=== PATIENT | male | born 1965 | race Two or more races ===

== ENCOUNTER 2024-06-30 08:00 | Outpatient (RCR) | payer MEDICAID, SELFPAY ==
--- NOTE | 2024-06-29 16:47 | CTCFLWUP_ITS ---
Patient: ROEL FAUSTIN : 1965 Page 2 of 2 FOLLOW UP NOTE DATE OF SERVICE: 06/29/2024 NAME: ROEL FAUSTIN ACCOUNT: [id number] : 1965 AGE: 59 INTERVAL HISTORY: Patient received his last durvalumab with Dr. Murphy. He says that he developed pneumonitis and sinc e then has been following with the [place]. Patient wanted to transfer his care back in [place] ONCOLOGY HISTORY: DIAGNOSIS: Malignant neoplasm of lower lobe, right bronchus or lung [ICD10] C34.31 DATE OF DIAGNOSIS: 05/29/2023 STAGE/TNM: Stage III lung cancer adenocarcinoma with no targetable mutations TREATMENT HISTORY: Care?Plan Start?Date Cycle Day Intent Taxol?Carbo?wkly?with?xrt 10/06/2023 1 7 Curative?(primary) DURValomab?10mg/kg 12/02/2023 1 14 Curative?(adjuvant) HISTORY OF PRESENT ILLNESS: Roel Faustin is a 59-year-old YULISSA speaking Other male with [id number] smoking history, smoking 3 cigarettes/day currently has the following oncology history. 05/29/2023: PET/CT scan was done as a follow-up study for history of pulmonary mass. 07/02/2023: CT-guided biopsy of the right lower lobe pulmonary mass 07/25/2023: CT scan of the chest with IV contrast 09/15/2023: Mr. Faustin has seen cardiothoracic surgeon Dr. Santi Lambert of [place]. 10/06/2023: The patient is started on chemoradiation. He received first weekly dose of Taxol and carb oplatin without any complications. 10/14/2023: The patient developed shortness of breath about 10 minutes after Taxol infusion. Taxol wa s discontinued. He was put on oxygen and eventually recovered and went home. He did not receive car boplatin that day. 10/20/2023 - 11/18/2023: Patient received carboplatin weekly as a radiosensitizing agent. Last dose of r adiation was given on 11/17/2023. 12/02/2023: Mr. Faustin received first dose of adjuvant durvalumab. 12/04/2023: PET/CT scan 12/26/2023: MRI of the abdomen with and without contrast PAST MEDICAL HISTORY: Non-small cell lung cancer RLL - dx 07/02/23 HTN Hyperlipidemia OTHER MEDICAL HISTORY/CONDITIONS: Non-small cell lung cancer RLL - dx 07/02/23 HTN Hyperlipidemia Right inguinal hernia repair - > 10yrs ago Right hand surgery - as child FAMILY HISTORY: Father:?Prostate?-?dx?age?80 SOCIAL HISTORY: Occupational?History:??[employer] Education?Level:?College Graduate, 4 year degree Marital?Status:? Tobacco?Pack?per?Day:?3 Tobacco?Use?Years:?30 Tobacco Use:?Smoked 3 ppd x 30yrs - now smoking 3 cigarettes/day ETOH?Use:?Socially Drug?Note:?Denies Social History Note:?Lives with and dtr MEDICATIONS: 1. rosuvastatin - 10 mg 1 tab Daily Medications Last Reconciled by Jeanette Butt MA on 06/29/2024 ALLERGIES: paclitaxel REVIEW OF SYSTEMS: A complete 14-point review of systems was performed and is negative except as noted in interval histo ry. PHYSICAL EXAMINATION: VITAL SIGNS: Temperature?97.8, B/P?122/86, Oxygen?Saturation?93% Weight?169.2?lbs PAIN: 0 - No pain ECOG Performance Status: 0 - Asymptomatic and fully active GENERAL APPEARANCE: Appears well, in no apparent distress, appropriately interactive. HEENT: Normocephalic, no temporal wasting, normal conjunctiva, no scleral icterus, normal hearing, li ps without lesions, neck normal range of motion. CARDIOVASCULAR: Not assessed. PULMONARY: Normal respiratory effort, no respiratory distress or use of accessory muscles, speaking i n full sentences, no tachypnea. EXTREMITIES: No pedal edema or cyanosis. SKIN: Normal skin appearance. NEUROLOGIC: Alert and oriented x4. PSHYCHIATRIC: Appropriate affect, mood normal, behavior normal, intact thought and speech. LABORATORY DATA: I have personally reviewed and interpreted each of the patient?s relevant lab tests, abnormal finding s are below: Date 03/08/24 ??GLUCOSE,RANDOM?(mg/dL) 116?H ??BLOOD?UREA?NITROGEN?(mg/dL) 24?H ??CREATININE?(mg/dL) 0.60 ??SODIUM?(mmol/L) 132?L ??POTASSIUM?(mmol/L) 4.0 ??CHLORIDE?(mmol/L) 101 ??CrCl?(CandG)?(ml/min) 127.85 ??AST/SGOT?(Unit/L) <?8 ??ALT/SGPT?(Unit/L) 31 ??ALKALINE?PHOSPHATASE?(Unit/L) 77 ??BILIRUBIN,?TOTAL?(mg/dL) 0.3 ??PROTEIN?TOTAL?(gm/dl) 5.4?L ??ALBUMIN,?SERUM?(gm/dl) 3.5 ??GLOBULIN?(gm/dl) 1.9?L ??ALBUMIN/GLOBULIN?RATIO 1.8 ??CALCIUM,?SERUM?(mg/dL) 8.8 ??CALCIUM?SERUM?(CORRECTED)?(mg/dL) 9.2 ASSESSMENT/PLAN: 1. Stage III A (T4, N0, M0) adenocarcinoma of the right lower lobe. Actionable mutations negative. High TMB score of 22.9 mutations per MB (07/02/2023) The cardiothoracic surgeon for Mr. Faustin is not a surgical candidate at this time. He has recomme nded chemoradiation and reconsider surgery depending on the response to chemoradiation. Patient completed chemo and radiation. PET CT scan in November 2023 showed poorly defined hypermetabolic lesion in the liver but MRI of the abdomen with and without contrast was negative for hepatic mets. Patient was followed by oncologist in [place]. Patient was on maintenance durvalumab. 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 Patient was put on prednisone taper and now is on prednisone 10 mg. Patient has not seen special forces engineer sergeant. [id number] smoking history. Currently smoking 3 cigarettes a day Need restaging scans. Patient states he just completed PET CT scan. I advised bilingual medical assistant Petey willson to get PET CT scan results for the patient and reschedule him with the appointment so as to review the results. As patient have stage III lung cancer also need brain MRI. Will also get endocrine la bs and refer to special forces engineer sergeant MRI brain TSH T4 T3 cortisol CBC CMP RETURN TO CLINIC: 3 to 4 weeks with the results Make sure patient's MRI brain and PET CT scan is there at the time of next visit BILLING AND COMPLIANCE: I reviewed external records from providers outside my specialty as summarized above. I spent a total of 50 minutes on this patient?s care on the day of their visit excluding time spent related to any bi lled procedures. This time includes time spent with the patient as well as time spent documenting in the medical record, reviewing patients records and tests, obtaining history, placing orders, communi cating with other healthcare professionals, counseling the patient, family or caregiver, and/or care coordination for the diagnoses above. Electronically Signed by: Amilcar Murrieta MD T: 4:44 PM CC: Khris?Angela? PCP: Amilcar Murrieta Referring: Amilcar Murrieta This document was completed utilizing speech recognition software. Grammatical errors, random word in sertions, pronoun errors, and incomplete sentences are an occasional consequence of this system due t o software limitations, ambient noise, and hardware issues. Any formal questions or concerns about th e content, text or information contained within the body of this dictation should be directly address ed to the provider for clarification.
[2024-06-30 13:11] LABS: Alanine Aminotransferase 13 U/L (10-49); Albumin, Serum 4.5 gm/dL (3.4-4.8); Albumin/Globulin Ratio 2.5 (1.2-2.2); Alkaline Phosphatase 78 U/L (46-116); Anion Gap 10 (7-16); Aspartate Amino Transferase 12 U/L (0-34); BUN/Creatinine Ratio 16 Ratio (12-20); Bilirubin,Total 0.5 mg/dL (0.3-1.2); Blood Urea Nitrogen 14 mg/dL (9-23); Calcium 9.4 mg/dL (8.3-10.6); Calcium (Corrected) 9.4 mg/dL (8.5-10.1); Carbon Dioxide 27.8 mMol/L (20.0-31.0); Chloride 104 mMol/L (98-107); Creatinine (Component) 0.9 mg/dL (0.6-1.3); Free T4 (Free Thyroxine) 1.45 ng/dL (0.89-1.76); Globulin 1.8 gm/dL (2.3-3.5); Glucose 73 mg/dL (74-106); Osmolality,Calculated 282 (275-295); Potassium 3.4 mMol/L (3.4-5.1); Sodium 142 mMol/L (136-145); Thyroid Stimulating Hormone 2.13 uIU/mL (0.55-4.78); Total Protein 6.3 gm/dL (5.7-8.2); eGFR > 60 See Note
[2024-06-30 15:53] LABS: Basophils # (Auto) 0.1 Thou/mm3 (0.0-0.2); Basophils % (Auto) 1 % (0-2.5); Eosinophils # (Auto) 0.2 Thou/mm3 (0.0-0.5); Eosinophils % (Auto) 4 % (0-10); Hematocrit 43.6 % (41.0-53.0); Hemoglobin 14.3 g/dL (13.5-16.0); Immature Granulocytes % (Auto) 0 % (0-0); Immature Granulocytes Auto 0.01 Thou/mm3 (0.00-0.00); Lymphocytes # (Auto) 0.7 Thou/mm3 (1.0-4.8); Lymphocytes % (Auto) 14 % (10-50); Mean Corpuscular HGB Conc 32.8 g/dl (31.0-37.0); Mean Corpuscular Hemoglobin 28.1 pg (25.0-35.0); Mean Corpuscular Volume 86 fL (80-100); Monocytes # (Auto) 0.6 Thou/mm3 (0.0-0.8); Monocytes % (Auto) 12 % (0-12); Neutrophils # (Auto) 3.5 Thou/mm3 (1.8-7.7); Neutrophils % (Auto) 68 % (37-80); Nucleated Red Blood Cell % 0 /100 WBC (0); Platelet Count 227 Thou/mm3 (140-440); RDW Standard Deviation 43.6 fL (35.1-43.9); Red Blood Count 5.08 Miln/mm3 (4.50-5.90); White Blood Count 5.1 Thou/mm3 (3.8-10.6)
== END 2024-07-16 23:59 | disposition home or self-care (01) ==
LOC: SCTC 08:00
PROVIDERS: PCP Student in an Organized Health Care Education/Training Program; Referring Provider Internal Medicine Hematology & Oncology; Visit Provider Internal Medicine Hematology & Oncology
DX: C34.31 Malignant neoplasm of lower lobe, right bronchus or lung (principal); F17.210 Nicotine dependence, cigarettes, uncomplicated
CPT/HCPCS: 36591; 80053; 82530; 82533; 84439; 84443; 85025; 99212; A4216; J1642; G0463

== ENCOUNTER → 2024-07-28 | Outpatient (CLI) | payer MEDICAID, SELFPAY ==
--- NOTE | 2024-07-28 08:15 | XR_ITS ---
Examination: MRI brain with intravenous contrast TECHNIQUE: Sagittal axial coronal brain MRI images post intravenous administration 14 cc gadolinium INDICATIONS: Diagnosis malignant neoplasm lower lobe right bronchus or lung, staging Exam date and time: July 28, 2024 0907 hours FINDINGS: Ventricles are normal in size and configuration. No mass effect upon the ventricular system. No effacement cortical sulcal markings. No enlargement of the sella turcica No abnormal enhancing cerebellar or cerebral lesions The optic globes exhibit symmetry IMPRESSION: No abnormal enhancing cerebellar or cerebral lesions
== END | disposition home or self-care (01) ==
LOC: SMRI 08:12
PROVIDERS: PCP Family Medicine; Referring Provider Internal Medicine Hematology & Oncology; Visit Provider Internal Medicine Hematology & Oncology
DX: C34.31 Malignant neoplasm of lower lobe, right bronchus or lung (principal)
CPT/HCPCS: 70552; A9579

== ENCOUNTER 2024-08-13 09:49 | Outpatient (RCR) | payer MEDICAID, SELFPAY ==
[2024-08-06 09:33] LABS: Basophils # (Auto) 0.1 Thou/mm3 (0.0-0.2); Basophils % (Auto) 1 % (0-2.5); Eosinophils # (Auto) 0.2 Thou/mm3 (0.0-0.5); Eosinophils % (Auto) 3 % (0-10); Hematocrit 44.6 % (41.0-53.0); Hemoglobin 14.7 g/dL (13.5-16.0); Immature Granulocytes % (Auto) 1 % (0-0); Immature Granulocytes Auto 0.03 Thou/mm3 (0.00-0.00); Lymphocytes # (Auto) 0.7 Thou/mm3 (1.0-4.8); Lymphocytes % (Auto) 12 % (10-50); Mean Corpuscular Hemoglobin 27.6 pg (25.0-35.0); Mean Corpuscular Volume 84 fL (80-100); Monocytes # (Auto) 0.6 Thou/mm3 (0.0-0.8); Monocytes % (Auto) 10 % (0-12); Neutrophils # (Auto) 4.3 Thou/mm3 (1.8-7.7); Neutrophils % (Auto) 75 % (37-80); Nucleated Red Blood Cell % 0 /100 WBC (0); Platelet Count 247 Thou/mm3 (140-440); RDW Standard Deviation 41.2 fL (35.1-43.9); Red Blood Count 5.33 Miln/mm3 (4.50-5.90); White Blood Count 5.8 Thou/mm3 (3.8-10.6)
[2024-08-06 10:01] LABS: Free T3 3.1 pg/mL (2.3-4.2)
[2024-08-06 10:08] LABS: Alanine Aminotransferase 12 U/L (10-49); Albumin, Serum 4.2 gm/dL (3.4-4.8); Albumin/Globulin Ratio 2.2 (1.2-2.2); Alkaline Phosphatase 88 U/L (46-116); Anion Gap 8 (7-16); Aspartate Amino Transferase 14 U/L (0-34); BUN/Creatinine Ratio 10 Ratio (12-20); Bilirubin,Total 0.4 mg/dL (0.3-1.2); Blood Urea Nitrogen 8 mg/dL (9-23); Calcium 9.4 mg/dL (8.3-10.6); Calcium (Corrected) 9.4 mg/dL (8.5-10.1); Chloride 105 mMol/L (98-107); Creatinine (Component) 0.8 mg/dL (0.6-1.3); Globulin 1.9 gm/dL (2.3-3.5); Glucose 98 mg/dL (74-106); Osmolality,Calculated 279 (275-295); Potassium 3.8 mMol/L (3.4-5.1); Sodium 141 mMol/L (136-145); Total Protein 6.1 gm/dL (5.7-8.2); eGFR > 60 See Note
--- NOTE | 2024-08-16 00:34 | CTCFLWUP_ITS ---
Patient: ROEL FAUSTIN : 1965 Page 5 of 6 FOLLOW UP NOTE DATE OF SERVICE: 08/13/2024 NAME: ROEL FAUSTIN ACCOUNT: [id number] : 1965 AGE: 59 INTERVAL HISTORY: No new complaints ONCOLOGY HISTORY: DIAGNOSIS: Malignant neoplasm of lower lobe, right bronchus or lung [ICD10] C34.31 DATE OF DIAGNOSIS: 05/29/2023 STAGE/TNM: Stage III lung cancer adenocarcinoma with no targetable mutations TREATMENT HISTORY: Care?Plan Start?Date Cycle Day Intent Taxol?Carbo?wkly?with?xrt 10/06/2023 1 7 Curative?(primary) DURValomab?10mg/kg 12/02/2023 1 14 Curative?(adjuvant) HISTORY OF PRESENT ILLNESS: Roel Faustin is a 59-year-old YULISSA speaking Other male with [id number] smoking history, smoking 3 cigarettes/day currently has the following oncology history. 05/29/2023: PET/CT scan was done as a follow-up study for history of pulmonary mass. 07/02/2023: CT-guided biopsy of the right lower lobe pulmonary mass 07/25/2023: CT scan of the chest with IV contrast 09/15/2023: Mr. Faustin has seen cardiothoracic surgeon Dr. Santi Lambert of [place]. 10/06/2023: The patient is started on chemoradiation. He received first weekly dose of Taxol and carboplatin without any complications. 10/14/2023: The patient developed shortness of breath about 10 minutes after Taxol infusion. Taxol was discontinued. He was put on oxygen and eventually recovered and went home. He did not receive carboplatin that day. 10/20/2023 - 11/18/2023: Patient received carboplatin weekly as a radiosensitizing agent. Last dose of radiation was given on 11/17/2023. 12/02/2023: Mr. Faustin received first dose of adjuvant durvalumab. 12/04/2023: PET/CT scan 12/26/2023: MRI of the abdomen with and without contrast PET CT scan on 05/17/2024 MRI brain on 07/28/2024 shows no abnormal enhancing cerebellar or cerebellar lesions PAST MEDICAL HISTORY: Non-small cell lung cancer RLL - dx 07/02/23 HTN Hyperlipidemia OTHER MEDICAL HISTORY/CONDITIONS: Non-small cell lung cancer RLL - dx 07/02/23 HTN Hyperlipidemia Right inguinal hernia repair - > 10yrs ago Right hand surgery - as child FAMILY HISTORY: Father:?Prostate?-?dx?age?80 SOCIAL HISTORY: Occupational?History:??[employer] Education?Level:?College Graduate, 4 year degree Marital?Status:? Tobacco?Pack?per?Day:?3 Tobacco?Use?Years:?30 Tobacco Use:?Smoked 3 ppd x 30yrs - now smoking 3 cigarettes/day ETOH?Use:?Socially Drug?Note:?Denies Social History Note:?Lives with and dtr MEDICATIONS: 1. rosuvastatin - 10 mg 1 tab Daily Medications Last Reconciled by Gaby Hebert MD on 08/13/2024 ALLERGIES: paclitaxel REVIEW OF SYSTEMS: A complete 14-point review of systems was performed and is negative except as noted in interval history. PHYSICAL EXAMINATION: VITAL SIGNS: Temperature?97.9, B/P?107/76, Oxygen?Saturation?93% Weight?169?lbs (Change?since?08/06/24:?-1.8?lbs) PAIN: 0 - No pain GENERAL APPEARANCE: Appears well, in no apparent distress, appropriately interactive. HEENT: Normocephalic, no temporal wasting, normal conjunctiva, no scleral icterus, normal hearing, lips without lesions, neck normal range of motion. CARDIOVASCULAR: Not assessed. PULMONARY: Normal respiratory effort, no respiratory distress or use of accessory muscles, speaking in full sentences, no tachypnea. EXTREMITIES: No pedal edema or cyanosis. SKIN: Normal skin appearance. NEUROLOGIC: Alert and oriented x4. PSHYCHIATRIC: Appropriate affect, mood normal, behavior normal, intact thought and speech. LABORATORY DATA: I have personally reviewed and interpreted each of the patient?s relevant lab tests, abnormal findings are below: Date 08/06/24 ??WHITE?BLOOD?COUNT?(Thou/mm3) 5.8 ??RED?BLOOD?COUNT?(Miln/mm3) 5.33 ??HEMOGLOBIN?(gm/dl) 14.7 ??HEMATOCRIT?(%) 44.6 ??PLATELET?COUNT?(Thou/mm3) 247 ??NEUTROPHILS?%,?AUTO?(%) 75 ??LYMPH?%,?AUTO?(%) 12 ??NEUTROPHILS,?AUTO?(Thou/mm3) 4.3 ASSESSMENT/PLAN: 1. Stage III A (T4, N0, M0) adenocarcinoma of the right lower lobe. Actionable mutations negative. High TMB score of 22.9 mutations per MB (07/02/2023) The cardiothoracic surgeon for Mr. Faustin is not a surgical candidate at this time. He has recommended chemoradiation and reconsider surgery depending on the response to chemoradiation. Patient completed chemo and radiation. PET CT scan in November 2023 showed poorly defined hypermetabolic lesion in the liver but MRI of the abdomen with and without contrast was negative for hepatic mets. Patient was followed by oncologist in [place]. Patient was on maintenance durvalumab. Patient had his last dose on 01/27/2024 and 12 pneumonitis which was attributed to immunotherapy. Patient was put on prednisone taper and now is on prednisone 10 mg. Patient has not seen all purpose clerk. [id number]-hygu smoking history. Currently smoking 3 cigarettes a day MRI brain negative PET CT scan CT scan do not show any new lesions TSH T4 T3 cortisol CBC CMP TSH T4 T3 cortisol CBC CMP RETURN TO CLINIC: 6 months BILLING AND COMPLIANCE: I reviewed external records from providers outside my specialty as summarized above. I spent a total of 50 minutes on this patient?s care on the day of their visit excluding time spent related to any billed procedures. This time includes time spent with the patient as well as time spent documenting in the medical record, reviewing patients records and tests, obtaining history, placing orders, communicating with other healthcare professionals, counseling the patient, family or caregiver, and/or care coordination for the diagnoses above. Electronically Signed by: Amilcar Murrieta MD T: 12:32 AM CC: Hiral? PCP: Perez Griggs Referring: Perez Griggs This document was completed utilizing speech recognition software. Grammatical errors, random word insertions, pronoun errors, and incomplete sentences are an occasional consequence of this system due to software limitations, ambient noise, and hardware issues. Any formal questions or concerns about the content, text or information contained within the body of this dictation should be directly addressed to the provider for clarification.
== END 2024-08-13 23:59 | disposition home or self-care (01) ==
LOC: SCTC 09:49
PROVIDERS: PCP Family Medicine; Referring Provider Family Medicine; Visit Provider Internal Medicine Hematology & Oncology
DX: C34.31 Malignant neoplasm of lower lobe, right bronchus or lung (principal); Z92.3 Personal history of irradiation; Z92.21 Personal history of antineoplastic chemotherapy; F17.210 Nicotine dependence, cigarettes, uncomplicated
CPT/HCPCS: 36591; 80053; 82533; 84439; 84443; 84481; 85025; 99212; A4216; J1642; G0463

== ENCOUNTER → 2024-08-24 | Outpatient (CLI) | payer MEDICAID, SELFPAY ==
--- NOTE | 2024-08-24 13:30 | ECHO_ITS ---
Transthoracic Echo Report Ht (in): 67 Wt (lb): 150 Exam Location: Echo Lab Status: Preadmit Personal Banking Assistant: SYLVESTER Hernandez^^^^ Indications: Procedure Performed: BP: 128 / 74 HR: 78 Rhythm: Sinus Technical Quality: Very technically difficult study MEASUREMENTS (Male / Female) Normal Values 2D ECHO LV Diastolic Diameter PLAX 3.9 cm 4.2 - 5.9 / 3.9 - 5.3 cm LV Systolic Diameter PLAX 2.7 cm IVS Diastolic Thickness 1.0 cm 0.6 - 1.0 / 0.6 - 0.9 cm LVPW Diastolic Thickness 0.9 cm 0.6 - 1.0 / 0.6 - 0.9 cm LV Relative Wall Thickness 0.5 LVOT Diameter 2.0 cm Aortic Root Diameter 3.9 cm LA Systolic Diameter LX 2.4 cm 3.0 - 4.0 / 2.7 - 3.8 cm LV Ejection Fraction MOD BP 62.0 % >= 55 % LV Cardiac Index MOD BP 3252.3 cm?/min?m? LV Ejection Fraction MOD 4C 59.4 % LV Cardiac Index MOD 4C 3681.7 cm?/min?m? LV Ejection Fraction 4C AL 60.2 % LV Cardiac Index 4C AL 3822.6 cm?/min?m? LV Ejection Fraction MOD 2C 66.1 % LV Cardiac Index MOD 2C 2953.1 cm?/min?m? LV Ejection Fraction 2C AL 66.5 % LV Cardiac Index 2C AL 2889.4 cm?/min?m? LA Volume Index 20.8 cm?/m? 16 - 28 cm?/m? DOPPLER AV Peak Velocity 127.0 cm/s AV Peak Gradient 6.5 mmHg AV Mean Gradient 4.0 mmHg AV Velocity Time Integral 23.2 cm AI Peak Velocity 267.0 cm/s AI Peak Gradient 28.5 mmHg AI Pressure Half Time 653.0 ms LVOT Peak Velocity 91.6 cm/s LVOT Peak Gradient 3.4 mmHg LVOT Velocity Time Integral 17.1 cm LVOT Cardiac Index 2329.6 cm?/min?m? AV Area Cont Eq vti 2.3 cm? AV Area Cont Eq pk 2.3 cm? MV Area PHT 3.2 cm? Mitral E Point Velocity 46.3 cm/s Mitral A Point Velocity 96.7 cm/s Mitral E to A Ratio 0.5 LV E' Lateral Velocity 9.3 cm/s Mitral E to LV E' Lateral Ratio 5.0 LV E' Septal Velocity 8.6 cm/s Mitral E to LV E' Septal Ratio 5.4 TR Peak Velocity 173.0 cm/s TR Peak Gradient 12.0 mmHg PV Peak Velocity 60.3 cm/s PV Peak Gradient 1.5 mmHg RVOT Peak Velocity 47.3 cm/s FINDINGS Left Ventricle Normal left ventricular size, wall thickness, systolic function with no obvious regional wall motion abnormalities. There is grade I diastolic dysfunction of the left ventricle (impaired relaxation pattern). The left ventricular ejection fraction is normal, estimated at 60-65%. Right Ventricle The right ventricle is normal in size and systolic function. The estimated right ventricular systolic pressure, 12 mmHg. Left Atrium The left atrium is normal by two-dimensional, color flow and Doppler imaging with no structural abnormalities, no thrombus formation present. Right Atrium The right atrium is normal by two-dimensional imaging, color flow and Doppler imaging with no structural abnormalities, no thrombus formation present. Atrial Septum The interatrial septum appears normal with no evidence of a shunt. Aorta The aortic root and proximal ascending aorta dimensions are at the upper limits of normal. Mitral Valve Trace to mild mitral regurgitation. Mild mitral annular calcification. Aortic Valve Mild aortic valve regurgitation. Tricuspid Valve There is trace tricuspid valve regurgitation. Pulmonic Valve The pulmonic valve is not well visualized. There is no significant pulmonic valve regurgitation. Vessels The pulmonary artery appears normal. The inferior vena cava pulmonary and hepatic veins appear normal. Pericardium The pericardium is normal by two-dimensional imaging. There is no significant pericardial effusion. CONCLUSIONS Indication: History of malignancy Normal LV size and function with an EF of 60 to 65%. Normal diastolic function. Normal RV size and function. Normal RVSP Mild AI, trace MR as well as trace TR. No pericardial effusion Ignacio Plattumanreyes (Electronically Signed) Final Date: 25 August 2024 00:37
== END | disposition home or self-care (01) ==
LOC: SDIM 08-26 08:46
PROVIDERS: Referring Provider Internal Medicine Hematology & Oncology; Visit Provider Internal Medicine Hematology & Oncology
DX: I08.3 Combined rheumatic disorders of mitral, aortic and tricuspid valves (principal); C34.31 Malignant neoplasm of lower lobe, right bronchus or lung
CPT/HCPCS: 93306

== ENCOUNTER → 2024-10-12 | Outpatient (CLI) | payer MEDICAID, SELFPAY ==
--- NOTE | 2024-10-12 14:00 | XR_ITS ---
Examination: CT chest with intravenous contrast CT chest without intravenous contrast CT chest without intravenous contrast 2-D reconstructions Date and time of exam:October 12, 2024 1445 hours INDICATIONS: Lung carcinoma diagnosis one year ago, coughing one month CTDI:vol (mGy) 9.42 DLP: (mGycm) 753 Technique: Multiple axial sections of the thorax have been obtained. 3 mm slice thickness, from the hemidiaphragms to above the apices of the lungs. Mediastinal and lung density settings have been obtained. Intravenous contrast administered 60 cc [id number]-370. Noncontrast images have also been obtained. 2-D sagittal coronal images obtained. Low dose protocols were performed. One or more of the following dose reduction techniques were used; automated exposure control, adjustment of the mA and/or KV according to patient size, use of iterative reconstruction technique. Findings: No thoracic aortic aneurysm dilatation or dissection Pulmonary artery segments are not enlarged No pulmonary artery emboli Masslike area in the inferior right hilar region 5.4 cm in transverse dimension Pneumonic consolidation with air bronchograms in the right lower lobe No visualized liver or splenic lesion No gallstones No pancreatic mass Prominent osteopenia IMPRESSION: Masslike area in the inferior right hilar region 5.4 cm in transverse dimension probably present on the prior CT chest 02/17/2024 but obscured by the significant right lung pneumonia Chronic parenchymal disease versus pneumonia in the right lower lobe Suggest continued 6 month follow-up CT chest post intravenous contrast recommended
== END | disposition home or self-care (01) ==
PROVIDERS: Referring Provider Internal Medicine Hematology & Oncology; Visit Provider Internal Medicine Hematology & Oncology
DX: R91.8 Other nonspecific abnormal finding of lung field (principal); C34.31 Malignant neoplasm of lower lobe, right bronchus or lung
CPT/HCPCS: 71270; A4649; Q9967

== ENCOUNTER 2024-11-10 11:23 | Outpatient (RCR) | payer MEDICAID, SELFPAY ==
--- NOTE | 2024-11-10 15:04 | CTCFLWUP_ITS ---
Patient: ROEL FAUSTIN : 1965 Page 2 of 2 FOLLOW UP NOTE DATE OF SERVICE: 11/10/2024 NAME: ROEL FAUSTIN ACCOUNT: [id number] : 1965 AGE: 59 INTERVAL HISTORY: Patient is being planned for surgery. He does not know his exact appointment but all the workup has been completed Subjective: History of Present Illness Roel is a male patient with a history of lung issues and possible cancer, presenting for follow-up on recent imaging studies and to discuss potential surgery. The patient recently underwent a CT scan on October 12, which showed results similar to previous scans. There is significant scarring in the lungs, which may be attributed to prior radiation treatment. Roel is currently awaiting an appointment for surgery, though the specific nature and timing of the procedure are not detailed. He has completed all necessary pre-surgical tests, including lung function tests. The patient's care team is considering ordering a blood test called [facility] to detect the presence of cancer. Review of Systems Respiratory: Positive for severe lung condition. Objective: Laboratory, Imaging, and Diagnostic Test Results - CT scan (10/12/2024): Results appear unchanged from previous scan. Significant scarring noted. - Heart imaging (specific test not specified): Normal findings. ONCOLOGY HISTORY: DIAGNOSIS: Malignant neoplasm of lower lobe, right bronchus or lung [ICD10] C34.31 DATE OF DIAGNOSIS: 05/29/2023 STAGE/TNM: Stage III lung cancer adenocarcinoma with no targetable mutations TREATMENT HISTORY: Care?Plan Start?Date Cycle Day Intent Taxol?Carbo?wkly?with?xrt 10/06/2023 1 7 Curative?(primary) DURValomab?10mg/kg 12/02/2023 1 14 Curative?(adjuvant) HISTORY OF PRESENT ILLNESS: Roel Faustin is a 59-year-old YULISSA speaking Other male with 31-[id number]-glhh smoking history, smoking 3 cigarettes/day currently has the following oncology history. 05/29/2023: PET/CT scan was done as a follow-up study for history of pulmonary mass. 07/02/2023: CT-guided biopsy of the right lower lobe pulmonary mass 07/25/2023: CT scan of the chest with IV contrast 09/15/2023: Mr. Faustin has seen cardiothoracic surgeon Dr. Santi Lambert of [place]. 10/06/2023: The patient is started on chemoradiation. He received first weekly dose of Taxol and carboplatin without any complications. 10/14/2023: The patient developed shortness of breath about 10 minutes after Taxol infusion. Taxol was discontinued. He was put on oxygen and eventually recovered and went home. He did not receive carboplatin that day. 10/20/2023 - 11/18/2023: Patient received carboplatin weekly as a radiosensitizing agent. Last dose of radiation was given on 11/17/2023. 12/02/2023: Mr. Faustin received first dose of adjuvant durvalumab. 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 Tobacco?Pack?per?Day:?3 Tobacco?Use?Years:?30 Tobacco Use:?Smoked 3 ppd x 30yrs - now smoking 3 cigarettes/day ETOH?Use:?Socially Drug?Note:?Denies Social History Note:?Lives with and dtr MEDICATIONS: 1. prednisone - 10 mg 0.5 tab Daily 2. rosuvastatin - 10 mg 1 tab Daily Medications Last Reconciled by Gaby Yusuf MA on 11/10/2024 ALLERGIES: paclitaxel REVIEW OF SYSTEMS: A complete 14-point review of systems was performed and is negative except as noted in interval history. PHYSICAL EXAMINATION: VITAL SIGNS: Temperature?98.7, B/P?112/78, Oxygen?Saturation?98% PAIN: 0 - No pain ECOG Performance Status: 1 - Symptomatic; ambulatory; restricted in strenuous activity GENERAL APPEARANCE: Appears well, in no apparent distress, appropriately interactive. HEENT: Normocephalic, no temporal wasting, normal conjunctiva, no scleral icterus, normal hearing, lips without lesions, neck normal range of motion. CARDIOVASCULAR: Not assessed. PULMONARY: Normal respiratory effort, no respiratory distress or use of accessory muscles, speaking in full sentences, no tachypnea. EXTREMITIES: No pedal edema or cyanosis. SKIN: Normal skin appearance. NEUROLOGIC: Alert and oriented x4. PSHYCHIATRIC: Appropriate affect, mood normal, behavior normal, intact thought and speech. LABORATORY DATA: I have personally reviewed and interpreted each of the patient?s relevant lab tests, abnormal findings are below: Date 06/30/24 08/06/24 ??WHITE?BLOOD?COUNT?(Thou/mm3) 5.1 5.8 ??RED?BLOOD?COUNT?(Miln/mm3) 5.08 5.33 ??HEMOGLOBIN?(gm/dl) 14.3 14.7 ??HEMATOCRIT?(%) 43.6 44.6 ??PLATELET?COUNT?(Thou/mm3) 227 247 ??NEUTROPHILS?%,?AUTO?(%) 68 75 ??LYMPH?%,?AUTO?(%) 14 12 ??NEUTROPHILS,?AUTO?(Thou/mm3) 3.5 4.3 ??GLUCOSE,RANDOM?(mg/dL) 73?L 98 ??BLOOD?UREA?NITROGEN?(mg/dL) 14 8?L ??CREATININE?(mg/dL) 0.90 0.80 ??SODIUM?(mmol/L) 142 141 ??POTASSIUM?(mmol/L) 3.4 3.8 ??CHLORIDE?(mmol/L) 104 105 ??CrCl?(CandG)?(ml/min) 95.98 107.60 ??AST/SGOT?(Unit/L) 12 14 ??ALT/SGPT?(Unit/L) 13 12 ??ALKALINE?PHOSPHATASE?(Unit/L) 78 88 ??BILIRUBIN,?TOTAL?(mg/dL) 0.5 0.4 ??PROTEIN?TOTAL?(gm/dl) 6.3 6.1 ??ALBUMIN,?SERUM?(gm/dl) 4.5 4.2 ??GLOBULIN?(gm/dl) 1.8?L 1.9?L ??ALBUMIN/GLOBULIN?RATIO 2.5?H 2.2 ??CALCIUM,?SERUM?(mg/dL) 9.4 9.4 ??CALCIUM?SERUM?(CORRECTED)?(mg/dL) 9.4 9.4 ASSESSMENT/PLAN: Roel, a male patient with severe lung issues, presented for follow-up of CT scan results and discussion of pending lung surgery 1. Stage III A (T4, N0, M0) adenocarcinoma of the right lower lobe. Actionable mutations negative. High TMB score of 22.9 mutations per MB (07/02/2023) The cardiothoracic surgeon for Mr. Faustin is not a surgical candidate at this time. He has recommended chemoradiation and reconsider surgery depending on the response to chemoradiation. Patient completed chemo and radiation. PET CT scan in November 2023 showed poorly defined hypermetabolic lesion in the liver but MRI of the abdomen with and without contrast was negative for hepatic mets. Patient was followed by oncologist in [place]. Patient was on maintenance durvalumab. Patient had his last dose on 01/27/2024 and 12 pneumonitis which was attributed to immunotherapy. Patient was put on prednisone taper and now is on prednisone 10 mg. Patient has not seen chocolatier. Advised to take half tablet every other day. Patient is on 2.5 mg of prednisone. Patient advised to stop it after this prescription is complete. [id number] smoking history. Last cigarette smoking was about a year ago. Severe lung disease Assessment: Patient has severe lung disease, likely with permanent damage possibly due to radiation therapy. Recent CT scan from October 12 shows unchanged findings compared to previous imaging, with significant scarring noted. Lung function appears to be significantly impaired, warranting surgical intervention. Awaiting appointment with surgeon for further management. Plan: - Perform Natira blood test to assess for presence of cancer - Contact radiologist to request re-read of recent CT scan - Recommend daily breathing exercises: - Instruct patient on proper technique (inhale through nose, hold, exhale through mouth) - Encourage frequent practice to increase lung capacity - Consider use of incentive spirometer (breast pump mentioned as substitute) - Await surgical appointment and intervention MRI brain negative PET CT scan CT scan do not show any new lesions TSH T4 T3 cortisol CBC CMP TSH T4 T3 cortisol CBC CMP ORDERS: Order # Description [id number] Comprehensive Metabolic Panel - 12 + CBC with Auto Diff [id number] Follow Up 2 Months [id number] RETURN TO CLINIC: 2 months BILLING AND COMPLIANCE: I reviewed external records from providers outside my specialty as summarized above. I spent a total of 50 minutes on this patient?s care on the day of their visit excluding time spent related to any billed procedures. This time includes time spent with the patient as well as time spent documenting in the medical record, reviewing patients records and tests, obtaining history, placing orders, communicating with other healthcare professionals, counseling the patient, family or caregiver, and/or care coordination for the diagnoses above. Electronically Signed by: Amilcar Murrieta MD T: 3:02 PM CC: Khris?BA Miller PCP: Perez Griggs Referring: Perez Griggs This document was completed utilizing speech recognition software. Grammatical errors, random word insertions, pronoun errors, and incomplete sentences are an occasional consequence of this system due to software limitations, ambient noise, and hardware issues. Any formal questions or concerns about the content, text or information contained within the body of this dictation should be directly addressed to the provider for clarification.
== END 2024-11-13 23:59 | disposition home or self-care (01) ==
LOC: SCTC 11:23
PROVIDERS: PCP Family Medicine; Referring Provider Family Medicine; Visit Provider Internal Medicine Hematology & Oncology
DX: C34.31 Malignant neoplasm of lower lobe, right bronchus or lung (principal); Z87.891 Personal history of nicotine dependence
CPT/HCPCS: 99212; G0463

== ENCOUNTER → 2024-12-07 | Outpatient (CLI) | payer MEDICAID, SELFPAY ==
--- NOTE | 2024-12-07 16:30 | ECHO_ITS ---
Transthoracic Echo Report Ht (in): 66 Wt (lb): 205 Exam Location: Echo Lab Status: Outpatient [employer] Application Developer: Ann Conrad Indications: Procedure Performed: BP: / HR: Technical Quality: Very technically difficult study MEASUREMENTS (Male / Female) Normal Values M-MODE Aortic Root Diameter MM 3.3 cm LA Systolic Diameter MM 3.1 cm LA Ao Ratio MM 0.9 AV Cusp Separation MM 1.7 cm DOPPLER AV Peak Velocity 87.3 cm/s AV Peak Gradient 3.0 mmHg AV Mean Gradient 1.5 mmHg AV Velocity Time Integral 15.4 cm LVOT Peak Velocity 62.1 cm/s LVOT Peak Gradient 1.5 mmHg LVOT Velocity Time Integral 13.2 cm MV Area PHT 3.7 cm? Mitral E Point Velocity 50.4 cm/s Mitral A Point Velocity 75.2 cm/s Mitral E to A Ratio 0.7 LV E' Lateral Velocity 10.6 cm/s Mitral E to LV E' Lateral Ratio 4.8 LV E' Septal Velocity 6.1 cm/s Mitral E to LV E' Septal Ratio 8.3 PV Peak Velocity 66.5 cm/s PV Peak Gradient 1.8 mmHg FINDINGS Left Ventricle Normal left ventricular size, wall thickness, systolic function with no obvious regional wall motion abnormalities.there is grade I diastolic dysfunction of the left ventricle (impaired relaxation pattern). The ejection fraction is visually estimated at 55%. Right Ventricle The right ventricle was not well visualized; however, the systolic function is considered normal based on the TAPSE criteria. Left Atrium The left atrium is normal by two-dimensional, color flow and Doppler imaging with no structural abnormalities, no thrombus formation present. Right Atrium The right atrium is normal by two-dimensional imaging, color flow and Doppler imaging with no structural abnormalities, no thrombus formation present. Atrial Septum The interatrial septum appears normal with no evidence of a shunt. Aorta The aorta is normal by two-dimensional, color flow and Doppler interrogation. Mitral Valve The mitral valve is not well visualized. Aortic Valve The aortic valve is not well visualized. Tricuspid Valve The tricuspid valve is not well visualized. Pulmonic Valve The pulmonic valve is not well visualized. There is no significant pulmonic valve regurgitation. Vessels Normal inferior vena cava (IVC). Pericardium The pericardium is normal by two-dimensional imaging. There is no significant pericardial effusion. CONCLUSIONS Indication: Malignant neoplasm of lower lobe, right bronchus or lung. Suboptimal images due to surgery. Technically limited study. Overall poor images. Normal LV size and function. Estimated EF at 55-60%. Grade I diastolic dysfunction. The RV was not well visualized; however, the systolic function is considered normal based on the TAPSE criteria. Unable to comment on valvular pathology. Ignacio Headley (Electronically Signed) Final Date: 09 December 2024 18:15
== END | disposition home or self-care (01) ==
LOC: SDIM 16:27
PROVIDERS: PCP Family Medicine; Referring Provider Internal Medicine Hematology & Oncology; Visit Provider Internal Medicine Hematology & Oncology
DX: C34.31 Malignant neoplasm of lower lobe, right bronchus or lung (principal); I51.89 Other ill-defined heart diseases
CPT/HCPCS: 93306

== ENCOUNTER 2024-12-15 07:57 | Outpatient (RCR) | payer MEDICAID, SELFPAY | END 2025-01-13 23:59 | disposition home or self-care (01) | LOC: SCTC 07:57 | PROVIDERS: PCP Family Medicine; Referring Provider Family Medicine; Visit Provider Internal Medicine Hematology & Oncology | DX: C34.31 Malignant neoplasm of lower lobe, right bronchus or lung (principal) | CPT/HCPCS: 36591; A4216; J1642 ==

== ENCOUNTER → 2025-01-18 | Outpatient (CLI) | payer MEDICAID, SELFPAY ==
--- NOTE | 2025-01-18 14:00 | XR_ITS ---
Examination: CT chest with intravenous contrast CT chest without intravenous contrast 2-D reconstructions Date and time of exam:January 18, 2025 1423 hours Comparison October 12, 2024 INDICATIONS: Diagnosis malignant neoplasm lower lobe right bronchus, restaging, 5.4 cm mass inferior right hilar region on CT chest October 12, 2024 CTDI:vol (mGy) 21.4 DLP: (mGycm) 756 Technique: Multiple axial sections of the thorax have been obtained. 3 mm slice thickness, from the hemidiaphragms to above the apices of the lungs. Mediastinal and lung density settings have been obtained. Intravenous contrast administered 60 cc Isovue-370. Noncontrast images have also been obtained. 2-D sagittal coronal images obtained. Low dose protocols were performed. One or more of the following dose reduction techniques were used; automated exposure control, adjustment of the mA and/or KV according to patient size, use of iterative reconstruction technique. Findings: No atherosclerotic aneurysmal dilatation No pulmonary artery filling defects Masslike area in the right lower lobe which appears necrotic now measures 5.0 cm compared to 5.4 cm on the prior study There is a loculated appearing pleural fluid below the pulmonary mass which may represent empyema Left lung is clear The osseous structures are intact No focal liver or splenic lesions No gallstones No pancreatic mass IMPRESSION: Mass in the right lower lobe now measures 5.0 cm in transverse dimension compared to 5.4 cm on the prior study However, there is a loculated pleural fluid below the pulmonary mass which may represent empyema, clinical correlation advised This fluid collection is amenable to CT-guided catheter drainage as clinically warranted
== END | disposition home or self-care (01) ==
LOC: CCTX 13:46
PROVIDERS: Referring Provider Internal Medicine Hematology & Oncology; Visit Provider Internal Medicine Hematology & Oncology
DX: R91.8 Other nonspecific abnormal finding of lung field (principal); C34.31 Malignant neoplasm of lower lobe, right bronchus or lung
CPT/HCPCS: 71270; A4649; Q9967

== ENCOUNTER 2025-01-31 11:31 | Outpatient (RCR) | payer MEDICAID, SELFPAY ==
[2025-01-28 11:36] LABS: Basophils # (Auto) 0.0 Thou/mm3 (0.0-0.2); Basophils % (Auto) 1 % (0-2.5); Eosinophils # (Auto) 0.2 Thou/mm3 (0.0-0.5); Eosinophils % (Auto) 4 % (0-10); Hematocrit 41.7 % (41.0-53.0); Hemoglobin 13.3 g/dL (13.5-16.0); Immature Granulocytes Auto 0.01 Thou/mm3 (0.00-0.00); Lymphocytes # (Auto) 0.7 Thou/mm3 (1.0-4.8); Lymphocytes % (Auto) 14 % (10-50); Mean Corpuscular HGB Conc 31.9 g/dl (31.0-37.0); Mean Corpuscular Hemoglobin 27.4 pg (25.0-35.0); Mean Corpuscular Volume 86 fL (80-100); Monocytes # (Auto) 0.4 Thou/mm3 (0.0-0.8); Monocytes % (Auto) 9 % (0-12); Neutrophils # (Auto) 3.7 Thou/mm3 (1.8-7.7); Neutrophils % (Auto) 73 % (37-80); Nucleated Red Blood Cell # 0.00 Thou/mm3 (0.00-0.00); Nucleated Red Blood Cell % 0 /100 WBC (0); Platelet Count 260 Thou/mm3 (140-440); RDW Standard Deviation 42.6 fL (35.1-43.9); Red Blood Count 4.85 Miln/mm3 (4.50-5.90); White Blood Count 5.1 Thou/mm3 (3.8-10.6)
[2025-01-28 11:54] LABS: Free T3 3.0 pg/mL (2.3-4.2)
[2025-01-28 11:58] LABS: Alanine Aminotransferase < 7 U/L (10-49); Albumin, Serum 4.5 gm/dL (3.4-4.8); Albumin/Globulin Ratio 2.4 (1.2-2.2); Alkaline Phosphatase 105 U/L (46-116); Anion Gap 11 (7-16); Aspartate Amino Transferase 19 U/L (0-34); BUN/Creatinine Ratio 10 Ratio (12-20); Bilirubin,Total 0.4 mg/dL (0.3-1.2); Blood Urea Nitrogen 8 mg/dL (9-23); Calcium 9.6 mg/dL (8.3-10.6); Calcium (Corrected) 9.6 mg/dL (8.5-10.1); Carbon Dioxide 26.2 mMol/L (20.0-31.0); Chloride 105 mMol/L (98-107); Creatinine (Component) 0.8 mg/dL (0.6-1.3); Free T4 (Free Thyroxine) 1.21 ng/dL (0.89-1.76); Globulin 1.9 gm/dL (2.3-3.5); Glucose 89 mg/dL (74-106); Osmolality,Calculated 280 (275-295); Potassium 4.0 mMol/L (3.4-5.1); Sodium 142 mMol/L (136-145); Thyroid Stimulating Hormone 1.68 uIU/mL (0.55-4.78); Total Protein 6.4 gm/dL (5.7-8.2); eGFR > 60 See Note
--- NOTE | 2025-01-31 13:32 | CTCFLWUP_ITS ---
Patient: ROEL FAUSTIN : 1965 Page 2 of 2 FOLLOW UP NOTE DATE OF SERVICE: 01/31/2025 NAME: ROEL FAUTSIN ACCOUNT: [id number] : 1965 AGE: 60 INTERVAL HISTORY: Patient completed surgery and appararently as per him was told had clear margins. Healed well. Objective: Laboratory, Imaging, and Diagnostic Test Results - CT scan (10/12/2024): Results appear unchanged from previous scan. Significant scarring noted. - Heart imaging (specific test not specified): Normal findings. ONCOLOGY HISTORY: DIAGNOSIS: Malignant neoplasm of lower lobe, right bronchus or lung [ICD10] C34.31 DATE OF DIAGNOSIS: 05/29/2023 STAGE/TNM: Stage III lung cancer adenocarcinoma with no targetable mutations TREATMENT HISTORY: Care?Plan Start?Date Cycle Day Intent Taxol?Carbo?wkly?with?xrt 10/06/2023 1 7 Curative?(primary) DURValomab?10mg/kg 12/02/2023 1 14 Curative?(adjuvant) HISTORY OF PRESENT ILLNESS: Roel Faustin is a 60-year-old YULISSA speaking Other male with 63-ltid-ndej smoking history, smoking 3 cigarettes/day currently has the following oncology history. 05/29/2023: PET/CT scan was done as a follow-up study for history of pulmonary mass. 07/02/2023: CT-guided biopsy of the right lower lobe pulmonary mass 07/25/2023: CT scan of the chest with IV contrast 09/15/2023: Mr. Faustin has seen cardiothoracic surgeon Dr. Santi Lambert of [place]. 10/06/2023: The patient is started on chemoradiation. He received first weekly dose of Taxol and carboplatin without any complications. 10/14/2023: The patient developed shortness of breath about 10 minutes after Taxol infusion. Taxol was discontinued. He was put on oxygen and eventually recovered and went home. He did not receive carboplatin that day. 10/20/2023 - 11/18/2023: Patient received carboplatin weekly as a radiosensitizing agent. Last dose of radiation was given on 11/17/2023. 12/02/2023: Mr. Faustin received first dose of adjuvant durvalumab. 12/04/2023: PET/CT scan 12/26/2023: MRI of the abdomen with and without contrast PET CT scan on 05/17/2024 MRI brain on 07/28/2024 shows no abnormal enhancing cerebellar or cerebellar lesions PAST MEDICAL HISTORY: Non-small cell lung cancer RLL - dx 07/02/23 HTN Hyperlipidemia OTHER MEDICAL HISTORY/CONDITIONS: Non-small cell lung cancer RLL - dx 07/02/23 HTN Hyperlipidemia Right inguinal hernia repair - > 10yrs ago Right hand surgery - as child FAMILY HISTORY: Father:?Prostate?-?dx?age?80 SOCIAL HISTORY: Occupational?History:??[employer] Education?Level:?College Graduate, 4 year degree Marital?Status:? Tobacco?Pack?per?Day:?3 Tobacco?Use?Years:?30 Tobacco Use:?Smoked 3 ppd x 30yrs - now smoking 3 cigarettes/day ETOH?Use:?Socially Drug?Note:?Denies Social History Note:?Lives with and dtr MEDICATIONS: 1. rosuvastatin - 10 mg 1 tab Daily Medications Last Reconciled by Gaby Yusuf MA on 11/10/2024 ALLERGIES: paclitaxel REVIEW OF SYSTEMS: A complete 14-point review of systems was performed and is negative except as noted in interval history. PHYSICAL EXAMINATION: VITAL SIGNS: PAIN: 0 - No pain ECOG Performance Status: 0 - Asymptomatic and fully active GENERAL APPEARANCE: Appears well, in no apparent distress, appropriately interactive. HEENT: Normocephalic, no temporal wasting, normal conjunctiva, no scleral icterus, normal hearing, lips without lesions, neck normal range of motion. CARDIOVASCULAR: Not assessed. PULMONARY: Normal respiratory effort, no respiratory distress or use of accessory muscles, speaking in full sentences, no tachypnea. EXTREMITIES: No pedal edema or cyanosis. SKIN: Normal skin appearance. NEUROLOGIC: Alert and oriented x4. PSHYCHIATRIC: Appropriate affect, mood normal, behavior normal, intact thought and speech. LABORATORY DATA: I have personally reviewed and interpreted each of the patient?s relevant lab tests, abnormal findings are below: Date 08/06/24 01/28/25 ??WHITE?BLOOD?COUNT?(Thou/mm3) 5.8 5.1 ??RED?BLOOD?COUNT?(Miln/mm3) 5.33 4.85 ??HEMOGLOBIN?(gm/dl) 14.7 13.3?L ??HEMATOCRIT?(%) 44.6 41.7 ??PLATELET?COUNT?(Thou/mm3) 247 260 ??NEUTROPHILS?%,?AUTO?(%) 75 73 ??LYMPH?%,?AUTO?(%) 12 14 ??NEUTROPHILS,?AUTO?(Thou/mm3) 4.3 3.7 ??GLUCOSE,RANDOM?(mg/dL) 98 89 ??BLOOD?UREA?NITROGEN?(mg/dL) 8?L 8?L ??CREATININE?(mg/dL) 0.80 0.80 ??SODIUM?(mmol/L) 141 142 ??POTASSIUM?(mmol/L) 3.8 4.0 ??CHLORIDE?(mmol/L) 105 105 ??CrCl?(CandG)?(ml/min) 107.60 98.79 ??AST/SGOT?(Unit/L) 14 19 ??ALT/SGPT?(Unit/L) 12 <?7?L ??ALKALINE?PHOSPHATASE?(Unit/L) 88 105 ??BILIRUBIN,?TOTAL?(mg/dL) 0.4 0.4 ??PROTEIN?TOTAL?(gm/dl) 6.1 6.4 ??ALBUMIN,?SERUM?(gm/dl) 4.2 4.5 ??GLOBULIN?(gm/dl) 1.9?L 1.9?L ??ALBUMIN/GLOBULIN?RATIO 2.2 2.4?H ??CALCIUM,?SERUM?(mg/dL) 9.4 9.6 ??CALCIUM?SERUM?(CORRECTED)?(mg/dL) 9.4 9.6 ASSESSMENT/PLAN: Roel, a male patient with severe lung issues, presented for follow-up of CT scan results and discussion of pending lung surgery 1. Stage III A (T4, N0, M0) adenocarcinoma of the right lower lobe. Actionable mutations negative. High TMB score of 22.9 mutations per MB (07/02/2023) The cardiothoracic surgeon for Mr. Faustin is not a surgical candidate at this time. He has recommended chemoradiation and reconsider surgery depending on the response to chemoradiation. Patient completed chemo and radiation. PET CT scan in November 2023 showed poorly defined hypermetabolic lesion in the liver but MRI of the abdomen with and without contrast was negative for hepatic mets. Patient was followed by oncologist in [place]. Patient was on maintenance durvalumab. Patient had his last dose on 01/27/2024 and 12 pneumonitis which was attributed to immunotherapy. Patient was put on prednisone taper and now is on prednisone 10 mg. Patient has not seen global logistics manager. Advised to take half tablet every other day. Patient is on 2.5 mg of prednisone. Patient advised to stop it after this prescription is complete. Had surgery Will follow on pathology RTC in 2 moths Get pathology and order caris ngs on it MRI ct is scheduled in feb 2025 RTC in [facility] ORDERS: Order # Description [id number] Follow Up 2 Months [id number] Comprehensive Metabolic Panel - 12 + CBC with Auto Diff [id number] MRI + Brain + With W/O Contrast RETURN TO CLINIC: I reviewed the diagnosis, prognosis, and recommended treatment/procedure options with the patient (and/or their legal car sales representative), including the potential benefits, risks, side effects and alternative therapies. We also discussed the option of no treatment and the possibility of clinical trial participation, if applicable. All questions were addressed, and they demonstrated understanding. They provided informed consent to proceed with the proposed plan of care. BILLING AND COMPLIANCE: I reviewed external records from providers outside my specialty as summarized above. I spent a total of 50 minutes on this patient?s care on the day of their visit excluding time spent related to any billed procedures. This time includes time spent with the patient as well as time spent documenting in the medical record, reviewing patients records and tests, obtaining history, placing orders, communicating with other healthcare professionals, counseling the patient, family or caregiver, and/or care coordination for the diagnoses above. Electronically Signed by: Amilcar Murrieta MD T: 1:30 PM CC: Khris?Angela? PCP: Perez Griggs Referring: Perez Griggs This document was completed utilizing speech recognition software. Grammatical errors, random word insertions, pronoun errors, and incomplete sentences are an occasional consequence of this system due to software limitations, ambient noise, and hardware issues. Any formal questions or concerns about the content, text or information contained within the body of this dictation should be directly addressed to the provider for clarification.
[2025-02-21 08:37] LABS: Cortisol,total,LC/MS/MS* 9.5 mcg/dL
== END 2025-02-13 23:59 | disposition home or self-care (01) ==
LOC: SCTC 11:31
PROVIDERS: PCP Family Medicine; Referring Provider Family Medicine; Visit Provider Internal Medicine Hematology & Oncology
DX: C34.31 Malignant neoplasm of lower lobe, right bronchus or lung (principal)
CPT/HCPCS: 36591; 80053; 82533; 84439; 84443; 84481; 85025; 99212; A4216; J1642; G0463

== ENCOUNTER → 2025-02-16 | Outpatient (CLI) | payer MEDICAID, SELFPAY ==
--- NOTE | 2025-02-16 16:15 | XR_ITS ---
Examination: MRI of brain without intravenous contrast. MRI brain with intravenous contrast. Date and time of exam:February 16, 2025, 1710 hrs., Comparison July 28, 2024 Indications: Diagnosis malignant neoplasm lower lobe right bronchus or lung, CT chest January 18, 2025 mass in the right lower lobe 5.0 cm, staging Technique: Multiple axial and sagittal images of the brain to been obtained. Siemens high-resolution 1.52 Dee short bore scanner utilized. Sagittal sections, T1 weighted images, TR 500, TE 14, are performed. Axial sections proton-density and T2-weighted images have been obtained. Inversion recovery axial images, TR 9260, TE 111, TR 2500. Diffusion weighted images, axial sections, TR 4800, TE 128, B value 1000. Axial sections, ADC map, TR 4800, TE 128. Axial and coronal images were also obtained post 14 cc gadolinium administered intravenously. Findings:: Enlargement of the sella turcica is not present. The optic chiasm and infundibular stalk are not remarkable. There is no localized enlargement of the medulla or chanda. Fourth ventricle and cerebellar tonsils appear normal in position. No subacute area of hemorrhage density is seen. Fourth ventricle is midline. Mass in the cerebellopontine angle region is not evident. 7th and 8th nerve complexes exhibit symmetry Globes are symmetrical Orbital musculature including medial lateral rectus muscles do not exhibit abnormality Increased white matter signal is moderate Effacement of the cortical sulcal markings is not identified. Mass effect upon the ventricular system is not identified. Diffusion-weighted images demonstrate no focus of restricted diffusion Contrast images demonstrate no abnormal enhancement Impression: Negative for acute hemorrhage, mass effect or midline shift No acute infarct. No abnormal enhancing cerebellar or cerebral lesions.
== END | disposition home or self-care (01) ==
LOC: SMRI 15:43
PROVIDERS: Referring Provider Internal Medicine Hematology & Oncology; Visit Provider Internal Medicine Hematology & Oncology
DX: C34.31 Malignant neoplasm of lower lobe, right bronchus or lung (principal)
CPT/HCPCS: 70553; A9577

== ENCOUNTER 2025-04-07 13:38 | Outpatient (RCR) | payer MEDICAID, SELFPAY ==
[2025-04-06 10:40] LABS: Basophils # (Auto) 0.1 Thou/mm3 (0.0-0.2); Basophils % (Auto) 1 % (0-2.5); Eosinophils # (Auto) 0.2 Thou/mm3 (0.0-0.5); Eosinophils % (Auto) 3 % (0-10); Hematocrit 44.7 % (41.0-53.0); Hemoglobin 14.5 g/dL (13.5-16.0); Immature Granulocytes Auto 0.01 Thou/mm3 (0.00-0.00); Lymphocytes # (Auto) 0.8 Thou/mm3 (1.0-4.8); Lymphocytes % (Auto) 14 % (10-50); Mean Corpuscular HGB Conc 32.4 g/dl (31.0-37.0); Mean Corpuscular Hemoglobin 26.6 pg (25.0-35.0); Mean Corpuscular Volume 82 fL (80-100); Monocytes # (Auto) 0.6 Thou/mm3 (0.0-0.8); Monocytes % (Auto) 11 % (0-12); Neutrophils # (Auto) 3.7 Thou/mm3 (1.8-7.7); Neutrophils % (Auto) 71 % (37-80); Nucleated Red Blood Cell # 0.00 Thou/mm3 (0.00-0.00); Nucleated Red Blood Cell % 0 /100 WBC (0); Platelet Count 220 Thou/mm3 (140-440); RDW Standard Deviation 45.2 fL (35.1-43.9); Red Blood Count 5.46 Miln/mm3 (4.50-5.90); White Blood Count 5.2 Thou/mm3 (3.8-10.6)
[2025-04-06 10:59] LABS: Alanine Aminotransferase 12 U/L (10-49); Albumin, Serum 4.8 gm/dL (3.4-4.8); Albumin/Globulin Ratio 2.7 (1.2-2.2); Alkaline Phosphatase 112 U/L (46-116); Anion Gap 9 (7-16); Aspartate Amino Transferase 17 U/L (0-34); BUN/Creatinine Ratio 15 Ratio (12-20); Bilirubin,Total 0.6 mg/dL (0.3-1.2); Blood Urea Nitrogen 12 mg/dL (9-23); Calcium 9.2 mg/dL (8.3-10.6); Calcium (Corrected) 9.2 mg/dL (8.5-10.1); Carbon Dioxide 28.6 mMol/L (20.0-31.0); Chloride 104 mMol/L (98-107); Creatinine (Component) 0.8 mg/dL (0.6-1.3); Globulin 1.8 gm/dL (2.3-3.5); Glucose 104 mg/dL (74-106); Osmolality,Calculated 282 (275-295); Potassium 3.9 mMol/L (3.4-5.1); Sodium 142 mMol/L (136-145); Thyroid Stimulating Hormone 1.46 uIU/mL (0.55-4.78); Total Protein 6.6 gm/dL (5.7-8.2); eGFR > 60 See Note
--- NOTE | 2025-04-07 14:38 | CTCFLWUP_ITS ---
Patient: ROEL FAUSTIN : 1965 Page 6 of 8 FOLLOW UP NOTE DATE OF SERVICE: 04/07/2025 NAME: ROEL FAUSTIN ACCOUNT: [id number] : 1965 AGE: 60 INTERVAL HISTORY: Visit summary -60-year-old male with a history of right lung cancer. Patient received chemotherapy and immunotherapy followed by lobectomy. Patient had complete response as no residual tumor was found on surgical specimen. Last CT scan showed a 5 cm lesion in the same spot as surgery. Plan is to repeat CT scan and continue to monitor Mr. Faustin closely. Patient may have necrotic tissue remaining at chemoRT site. Continue to do Ratna every 3 months. Patient is complaining of pain over the surgical site and unable to do any activity involving lifting and is requesting disability paperwork completed for him. Plan is to work with secondary social studies teacher to help patient and start him on gabapentin and referral to pain management. ONCOLOGY HISTORY: DIAGNOSIS: Malignant neoplasm of lower lobe, right bronchus or lung [ICD10] C34.31 DATE OF DIAGNOSIS: 05/29/2023 STAGE/TNM: Stage III lung cancer adenocarcinoma with no targetable mutations TREATMENT HISTORY: Care?Plan Start?Date Cycle Day Intent Taxol?Carbo?wkly?with?xrt 10/06/2023 1 7 Curative?(primary) DURValomab?10mg/kg 12/02/2023 1 14 Curative?(adjuvant) HISTORY OF PRESENT ILLNESS: Roel Faustin is a 60-year-old YULISSA speaking Other male with 72-fcul-ojyn smoking history, smoking 3 cigarettes/day currently has the following oncology history. 05/29/2023: PET/CT scan was done as a follow-up study for history of pulmonary mass. 07/02/2023: CT-guided biopsy of the right lower lobe pulmonary mass 07/25/2023: CT scan of the chest with IV contrast 09/15/2023: Mr. Faustin has seen cardiothoracic surgeon Dr. Santi Lambert of [place]. 10/06/2023: The patient is started on chemoradiation. He received first weekly dose of Taxol and carboplatin without any complications. 10/14/2023: The patient developed shortness of breath about 10 minutes after Taxol infusion. Taxol was discontinued. He was put on oxygen and eventually recovered and went home. He did not receive carboplatin that day. 10/20/2023 - 11/18/2023: Patient received carboplatin weekly as a radiosensitizing agent. Last dose of radiation was given on 11/17/2023. 12/02/2023: Mr. Faustin received first dose of adjuvant durvalumab. 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 Tobacco?Pack?per?Day:?3 Tobacco?Use?Years:?30 Tobacco Use:?Smoked 3 ppd x 30yrs - now smoking 3 cigarettes/day ETOH?Use:?Socially Drug?Note:?Denies Social History Note:?Lives with and dtr MEDICATIONS: 1. gabapentin - 300 mg 1 Capsule every 8 hrs as needed for pain 2. rosuvastatin - 10 mg 1 tab Daily Medications Last Reconciled by Ramona Allison MA on 04/07/2025 ALLERGIES: paclitaxel REVIEW OF SYSTEMS: A complete 14-point review of systems was performed and is negative except as noted in interval history. PHYSICAL EXAMINATION: VITAL SIGNS: Temperature?98.3, B/P?110/75, Oxygen?Saturation?96% Weight?160?lbs (Change?since?04/06/25:?1.8?lbs) PAIN: 3 - Between mild and moderate pain GENERAL APPEARANCE: Appears well, in no apparent distress, appropriately interactive. HEENT: Normocephalic, no temporal wasting, normal conjunctiva, no scleral icterus, normal hearing, lips without lesions, neck normal range of motion. CARDIOVASCULAR: Not assessed. PULMONARY: Normal respiratory effort, no respiratory distress or use of accessory muscles, speaking in full sentences, no tachypnea. EXTREMITIES: No pedal edema or cyanosis. SKIN: Normal skin appearance. NEUROLOGIC: Alert and oriented x4. PSHYCHIATRIC: Appropriate affect, mood normal, behavior normal, intact thought and speech. LABORATORY DATA: I have personally reviewed and interpreted each of the patient?s relevant lab tests, abnormal findings are below: Date 01/28/25 04/06/25 ??WHITE?BLOOD?COUNT?(Thou/mm3) 5.1 5.2 ??RED?BLOOD?COUNT?(Miln/mm3) 4.85 5.46 ??HEMOGLOBIN?(gm/dl) 13.3?L 14.5 ??HEMATOCRIT?(%) 41.7 44.7 ??PLATELET?COUNT?(Thou/mm3) 260 220 ??NEUTROPHILS?%,?AUTO?(%) 73 71 ??LYMPH?%,?AUTO?(%) 14 14 ??NEUTROPHILS,?AUTO?(Thou/mm3) 3.7 3.7 ??GLUCOSE,RANDOM?(mg/dL) 89 104 ??BLOOD?UREA?NITROGEN?(mg/dL) 8?L 12 ??CREATININE?(mg/dL) 0.80 0.80 ??SODIUM?(mmol/L) 142 142 ??POTASSIUM?(mmol/L) 4.0 3.9 ??CHLORIDE?(mmol/L) 105 104 ??CrCl?(CandG)?(ml/min) 98.79 98.42 ??AST/SGOT?(Unit/L) 19 17 ??ALT/SGPT?(Unit/L) <?7?L 12 ??ALKALINE?PHOSPHATASE?(Unit/L) 105 112 ??BILIRUBIN,?TOTAL?(mg/dL) 0.4 0.6 ??PROTEIN?TOTAL?(gm/dl) 6.4 6.6 ??ALBUMIN,?SERUM?(gm/dl) 4.5 4.8 ??GLOBULIN?(gm/dl) 1.9?L 1.8?L ??ALBUMIN/GLOBULIN?RATIO 2.4?H 2.7?H ??CALCIUM,?SERUM?(mg/dL) 9.6 9.2 ??CALCIUM?SERUM?(CORRECTED)?(mg/dL) 9.6 9.2 ASSESSMENT/PLAN: Roel, a male patient with severe lung issues, presented for follow-up of CT scan results and discussion of pending lung surgery 1. Stage III A (T4, N0, M0) adenocarcinoma of the right lower lobe. Actionable mutations negative. High TMB score of 22.9 mutations per MB (07/02/2023) Patient had chemoRT followed by maintenance durvalumab followed by surgery surgery showed no viable tumor Last CT scan was stable RTC in [address] scan results and labs Gabapentin for pain Referral to pain medicine for evaluation Referral to social work assistant ORDERS: Order # Description [id number] CT Scan + Chest + With Contrast [id number] MD Follow Up 4 Month + Comprehensive Metabolic Panel - 12 + CBC with Auto Diff RETURN TO CLINIC: I reviewed the diagnosis, prognosis, and recommended treatment/procedure options with the patient (and/or their legal area representative), including the potential benefits, risks, side effects and alternative therapies. We also discussed the option of no treatment and the possibility of clinical trial participation, if applicable. All questions were addressed, and they demonstrated understanding. They provided informed consent to proceed with the proposed plan of care. BILLING AND COMPLIANCE: I reviewed external records from providers outside my specialty as summarized above. I spent a total of 50 minutes on this patient?s care on the day of their visit excluding time spent related to any billed procedures. This time includes time spent with the patient as well as time spent documenting in the medical record, reviewing patients records and tests, obtaining history, placing orders, communicating with other healthcare professionals, counseling the patient, family or caregiver, and/or care coordination for the diagnoses above. Electronically Signed by: Amilcar Murrieta MD T: 2:36 PM CC: Hiral? PCP: Perez Griggs Referring: Perez Griggs This document was completed utilizing speech recognition software. Grammatical errors, random word insertions, pronoun errors, and incomplete sentences are an occasional consequence of this system due to software limitations, ambient noise, and hardware issues. Any formal questions or concerns about the content, text or information contained within the body of this dictation should be directly addressed to the provider for clarification.
== END 2025-04-15 23:59 | disposition home or self-care (01) ==
LOC: SCTC 13:38
PROVIDERS: PCP Family Medicine; Referring Provider Family Medicine; Visit Provider Internal Medicine Hematology & Oncology
DX: C34.31 Malignant neoplasm of lower lobe, right bronchus or lung (principal)
CPT/HCPCS: 36591; 80053; 84443; 85025; 99213; A4216; J1642; G0463

== ENCOUNTER → 2025-05-20 | Outpatient (CLI) | payer MEDICAID, SELFPAY ==
--- NOTE | 2025-05-20 15:00 | XR_ITS ---
Examination: CT chest with intravenous contrast 2-D sagittal and coronal reconstructions Exam date and time: May 20, 2025, 1503 hours, comparison January 18, 2025 INDICATIONS: Diagnosis malignant neoplasm of right bronchus or lung, currently being treated for lung cancer, mass in the right lower lobe 5.0 cm in transverse dimension January 18, 2025 compared with 5.[address] chest October 12, 2024 CTDI:vol (mGy) 11.5 DLP: (mGycm) 444 Technique: Multiple axial sections of the thorax have been obtained. Sections have been obtained, 3 mm slice thickness. Mediastinal and lung density settings have been obtained. Intravenous contrast administered, 60 cc [id number] 2-D sagittal, coronal images obtained. Low dose protocols were performed. One or more of the following dose reduction techniques were used; automated exposure control, adjustment of the mA and/or KV according to patient size, use of iterative reconstruction technique. Findings: Mild aneurysmal dilatation ascending thoracic aorta, transverse dimension 4.1 cm No pulmonary artery emboli Stable pulmonary mass in the right lower lobe with mild loculated pleural fluid, measuring approximately 5 cm No new pulmonary nodules Left lung clear No visualized liver or splenic lesion No gallstones No pancreatic mass Minimal nodular thickening left adrenal gland No hydronephrosis Moderate thoracic spondylosis IMPRESSION: Stable pulmonary mass in the right lower lobe with mild loculated right pleural fluid
== END | disposition home or self-care (01) ==
PROVIDERS: PCP Family Medicine; Referring Provider Internal Medicine Hematology & Oncology; Visit Provider Internal Medicine Hematology & Oncology
DX: R91.8 Other nonspecific abnormal finding of lung field (principal); C34.31 Malignant neoplasm of lower lobe, right bronchus or lung
CPT/HCPCS: 71260; A4649; Q9967